=== PATIENT | male | born 1965 | race Caucasian/White ===

== ENCOUNTER 2016-04-09 20:11 | Emergency (ER) ==
[2016-04-09 20:15] VITALS: BP 139/88; TEMP 97.9; BMI 27.3
[2016-04-09] MEDS ORDERED: DECADRON 4 MG/ML SDV IM STA (20:31)
[2016-04-09] MEDS ORDERED: ASPIRIN CHEWABLE PO STA (20:31)
--- NOTE | 2016-04-09 20:35 | ED.PDOC ---
General ED Provider: Dr. REGINO LIRIANO Chief Complaint: Chest Wall Injury/Pain Stated Complaint: Been coughing congestion for couple days, getting lots of sputum, but today started hurting in the left side of the chest, dull tyle, hurts to breath, pain radiates to left arm, some shortness of breath. no fever or chills Time Seen by Physician: 20:32 Mode of Arrival: Walk-In Information Source: Patient Primary Care Provider: YUE PACHECO Nursing and Triage Documentation Reviewed and Agree: Yes Cardiovascular Complaint Exam - Chest Pain Complaint/Exam Onset: Gradual Symptoms Are: Still present Timing: Constant Initial Severity: Moderate Current Severity: Moderate Location: Reports: Midsternal, Upper sternal Pain Radiates: Reports: Left shoulder, Left arm Character: Reports: Tightness, Heaviness Aggravating: Reports: Exertion, Deep breaths Alleviating: Reports: None Associated Signs and Symptoms: Reports: Cough, Short of air. Denies: Diaphoresis, Nausea, Vomiting, Fever, Palpitations, Hemoptysis, Back pain, Abdominal pain, Dizziness, Calf pain, Calf swelling Related History: Reports: Similar episode Related Surgical History: Reports: None History of Healthcare-Acquired Pneumonia: Reports: No AMI/ACS Risk Factors: Reports: None TAD Risk Factors: Reports: Hypertension, Smoking Pulmonary Embolism Risk Factors: Reports: None Prior Care for this Complaint: No Recent Stress Test: No Recent Echo/LV Function: No JVD Present: No Subcutaneous Emphysema Present: No Diminshed Breath Sounds: Yes Reproducible Chest Wall Pain: Yes Bilateral Pulses Present: Yes Unequal Pulses Noted: No If Risk Factors for AMI/ACS Consider: EKG, Cardiac Enzymes, Serial Studies, Oxygen, Aspirin Differential Diagnoses: Unstable Angina, Chest Wall Pain Review of Systems - Review Of Systems Constitutional: Reports: Weakness Eyes: Reports: No symptoms Ears, Nose, Mouth, Throat: Reports: No symptoms Respiratory: Reports: Short of air Cardiac: Reports: Chest pain GI: Reports: No symptoms : Reports: No symptoms Musculoskeletal: Reports: No symptoms Skin: Reports: No symptoms Neurological: Reports: No symptoms Endocrine: Reports: No symptoms Hematologic/Lymphatic: Reports: No symptoms All Other Systems: Reviewed and Negative Past Medical History - Past Medical History Previously Healthy: Yes Endocrine: Reports: DM 2 Cardiovascular: Reports: None Respiratory: Reports: None Hematological: Reports: None Gastrointestinal: Reports: None Genitourinary: Reports: None Neuro/Psych: Reports: None Musculoskeletal: Reports: None Cancer: Reports: None - Surgical History General Surgical History: Reports: Tonsillectomy - Family History Family History: Reports: None - Social History Smoking Status: Never smoker Hx Substance Use: No Alcohol Screening: Occasionally - Immunizations Tetanus Shot up to Date: No Physical Exam - Physical Exam Appearance: Ill-appearing, Thin Pain Distress: Moderate Eyes: VINAY, EOMI, Conjunctiva clear ENT: Ears normal, Nose normal, Oropharynx normal Respiratory: Breath sounds diminished Cardiovascular: RRR, Pulses normal, No rub, No murmur GI/: Soft, Nontender, No masses, Bowel sounds normal, No Organomegaly Musculoskeletal: Normal strength, ROM intact, No edema, No calf tenderness Skin: Warm, Dry, Normal color Neurological: Sensation intact, Motor intact, Reflexes intact, Cranial nerves intact, Alert, Oriented Psychiatric: Affect appropriate, Mood appropriate Interpretation - Radiology Interpretation Radiology Interpretation By: Radiologist Radiology Results: Negative Exam Interpreted: CT Scan Re-Evaluation - Re-Evaluation Time of Re-Evaluation: 22:27 Status: Improved Critical Care Note - Critical Care Note Total Time (mins): 0 Course - Course Hematology/Chemistry: 04/09/16 20:39 04/09/16 20:39 Orders, Labs, Meds: Lab Review 04/09/16 20:39 WBC 8.36 RBC 5.36 Hgb 16.4 Hct 47.4 MCV 88.4 MCH 30.6 MCHC 34.6 RDW Coeff of [place] 13.3 Plt Count 289 Immature Gran % (Auto) 0.4 Neut % (Auto) 55.0 Lymph % (Auto) 33.1 [place] % (Auto) 9.2 Eos % (Auto) 1.8 Baso % (Auto) 0.5 Immature Gran # (Auto) 0.0 Neut # 4.6 Lymph # 2.8 [place] # 0.8 Eos # 0.2 Baso # 0.0 D-Dimer 0.22 Sodium 136 Potassium 4.4 Chloride 100 Carbon Dioxide 25 Anion Gap 15.4 BUN 9 Creatinine 0.99 Estimated GFR (MDRD) 80.00 BUN/Creatinine Ratio 9.09 Glucose 390 H Calcium 9.4 Total Bilirubin 0.58 AST 16 ALT 35 Alkaline Phosphatase 73 Total Creatine Kinase 119 CK-MB (CK-2) 2.9 CK-MB (CK-2) % 2.40920 Troponin I < 0.0100 B-Natriuretic Peptide < 10 Total Protein 7.1 Albumin 4.2 Globulin 2.9 Albumin/Globulin Ratio 1.45 Orders Category Date Time Status EKG-(ED ONLY) Stat CARDIO 04/09/16 20:31 Completed ACCUCHECK (ED) [ED ACCUCHECK ASSESSMENT] .ONCE EMERGENCY 04/09/16 22:11 Active B-TYPE NATRIURETIC PEPTIDE Stat LAB 04/09/16 20:39 Completed CBC W/ AUTO DIFF Stat LAB 04/09/16 20:39 Completed COMPREHENSIVE METABOLIC PANEL Stat LAB 04/09/16 20:39 Completed CREATINE KINASE Stat LAB 04/09/16 20:39 Completed D-DIMER Stat LAB 04/09/16 20:39 Completed TROPONIN I Stat LAB 04/09/16 20:39 Completed Aspirin [Aspirin Chewable] MEDS 04/09/16 20:31 Discontinued 81 mg PO ONCE STA Dexamethasone 4 mg/ml Inj [Decadron 4 mg/ml Sdv] MEDS 04/09/16 20:31 Discontinued 4 mg IM ONCE STA Insulin Regular, Human [Humulin R] MEDS 04/09/16 21:59 Discontinued 10 unit SU[address]UT ONCE STA CT CHEST W/O CONTRAST Stat RADS 04/09/16 20:34 Completed Medications Discontinued Medications Generic Name Dose Route Start Last Admin Trade Name Freq PRN Reason Stop Dose Admin Aspirin 81 mg 04/09/16 20:31 04/09/16 20:41 Aspirin Chewable PO 04/09/16 20:32 81 mg ONCE STA Administration Dexamethasone Sodium Phosphate 4 mg 04/09/16 20:31 04/09/16 20:41 Decadron 4 Mg/Ml Sdv IM 04/09/16 20:32 4 mg ONCE STA Administration Insulin Human Regular 10 unit 04/09/16 21:59 04/09/16 22:20 Humulin R SUBCUT 04/09/16 22:00 10 unit ONCE STA Administration Vital Signs: Temp Pulse Resp BP Pulse Ox 04/09/16 20:12 97.9 F 91 H 20 139/88 96 GIULIA Risk Score GIULIA Risk Score: Risk Score Odds of by 30D 0 0.1 (0.1-0.2) 1 0.3 (0.2-0.3) 2 0.4 (0.3-0.5) 3 0.7 (0.6-0.9) 4 1.2 (1.0-1.5) 5 2.2 (1.9-2.6) 6 3.0 (2.5-3.6) 7 4.8 (3.8-6.1) Departure - Departure Time of Disposition: 22:24 Disposition: HOME SELF-CARE Discharge Problem: Chest wall pain, Pleurisy, URTI (acute upper respiratory infection) Instructions: Pleurisy (ED) Condition: Stable Pt referred to PMD for follow-up: Yes Additional Instructions: Keep checking the blood sugars if more than 250 call MD steroids will increase sugars needs medication adjustment sugars are high, patient wants to go home as his also has diabetes and they did not bring her medications patient does take Insulin humalog at home tells that she will make sure they are better other hernandez she will take him to PMD in am Prescriptions: Cephalexin [Keflex] 500 mg PO Q12HR #20 capsule Codeine/Promethazine Syrup [Phenergan with Codeine 6.25/10 mg/5 ml] 5 ml PO Q8H #1 bottle Prednisone 5 mg PO BIDWM #14 tablet Allergies/Adverse Reactions: Allergies No Known Allergies Allergy (Unverified 04/09/16 20:15) Home Medications: Ambulatory Orders Hydrocodone/Acetaminophen [[place] 10-325 Tablet] 1 each PO Q6HR PRN #20 tablet Cephalexin [Keflex] 500 mg PO Q12HR #20 capsule 04/09/16 Codeine/Promethazine Syrup [Phenergan with Codeine 6.25/10 mg/5 ml] 5 ml PO Q8H #1 bottle 04/09/16 Prednisone 5 mg PO BIDWM #14 tablet 04/09/16 Disposition Discussed With: Patient, Family
[2016-04-09 20:45] LABS: BASOPHILS % (AUTO) 0.5 % (0.0-3.0); EOSINOPHILS # (AUTO) 0.2 K/ul (0.0-0.7); EOSINOPHILS % (AUTO) 1.8 % (0.0-7.0); HEMATOCRIT 47.4 % (42.0-52.0); HEMOGLOBIN 16.4 g/dl (14.0-18.0); IMMATURE GRANULOCYTE % (AUTO) 0.4 % (0.0-5.0); LYMPHOCYTES # (AUTO) 2.8 K/uL (0.60-3.4); LYMPHOCYTES % (AUTO) 33.1 (10.0-50.0); MEAN CORPUSCULAR HEMOGLOBIN 30.6 pg (27.0-31.0); MEAN CORPUSCULAR HGB CONC 34.6 (31.8-35.4); MEAN CORPUSCULAR VOLUME 88.4 fl (80.0-94.0); MONOCYTES # (AUTO) 0.8 K/uL (0.4-2.0); MONOCYTES % (AUTO) 9.2 (0-10); NEUTROPHILS # (AUTO) 4.6 K/ul (2.0-6.9); PLATELET COUNT 289 10^3/uL (140-440); RED BLOOD COUNT 5.36 10^6/ul (4.70-6.10); WHITE BLOOD COUNT 8.36 K/ul (4.2-10.2)
[2016-04-09 21:20] LABS: ALANINE AMINOTRANSFERASE 35 U/L (12-78); ALBUMIN 4.2 g/dL (3.4-5.0); ALBUMIN/GLOBULIN RATIO 1.45; ALKALINE PHOSPHATASE 73 U/L (50-136); ANION GAP 15.4; ASPARTATE AMINO TRANSFERASE 16 U/L (15-37); BILIRUBIN,TOTAL 0.58 mg/dL (0.00-1.20); BLOOD UREA NITROGEN 9 mg/dL (7-18); BUN/CREATININE RATIO 9.09; CALCIUM 9.4 mg/dL (8.2-10.2); CARBON DIOXIDE 25 mmol/L (21-32); CHLORIDE 100 mmol/L (98-107); CREATINE KINASE 119 U/L; CREATININE 0.99 mg/dL (0.60-1.10); GLUCOSE 390 mg/dL (70-100); POTASSIUM 4.4 mmol/L (3.5-5.1); SODIUM 136 mmol/L (136-145); TOTAL PROTEIN 7.1 g/dL (6.4-8.2)
[2016-04-09 21:21] LABS: CREATINE KINASE MB 2.9 ng/ml (0.0-3.6)
--- NOTE | 2016-04-09 21:36 | CT ---
Exam: CT of the chest without contrast History: Trauma and chest pain on the left Technique: [address] of the chest without intravascular contrast FINDINGS: Lung windows show no pulmonary parenchymal abnormalities. Heart, great vessels and peric ardium appear normal. No acute findings of the chest wall soft tissues or bony thorax. Upper abdom en shows no acute findings. Impression: No acute findings of the chest
[2016-04-09] MEDS ORDERED: HUMULIN R SUBCUT STA (21:59)
== END 2016-04-09 23:30 | disposition home or self-care (01) ==
LOC: ED 20:11
DX: R07.89 Other chest pain (principal); J06.9 Acute upper respiratory infection, unspecified; R09.1 Pleurisy; E11.65 Type 2 diabetes mellitus with hyperglycemia; I10 Essential (primary) hypertension
CPT/HCPCS: 36415; 80053; 82550; 82553; 82962; 83880; 84484; 85025; 85379; 93005; 93010; 96372; 99283

== ENCOUNTER 2017-11-24 19:35 | Emergency (ER) ==
[2017-11-24 19:47] VITALS: BP 131/86; TEMP 100; BMI 25.7
--- NOTE | 2017-11-24 21:18 | CT ---
EXAM: CTA chest with contrast using PE protocol. TECHNIQUE: Helical CTA of the chest was performed with contrast in axial plane with coronal and sagit kiarra reconstructions and separate work station 3-D renderings. COMPARISON: CT chest from 04/09/2016 HISTORY: Chest pain. FINDINGS: There are no filling defects in the pulmonary arteries to the level of the subsegmental branches. The re is no sign of ventricular strain. The lungs are clear with no large effusion or failure or lobar i nfiltrate. There is no pathologic supraclavicular, axillary, mediastinal or hilar adenopathy. There is no pericardial effusion or pneumothorax. The aorta demonstrates no significant atherosclerot ic calcifications with no dissection or aneurysm. The upper abdomen is benign with no acute abnormali ty. There are no acute osseous abnormalities. There is fatty infiltration of the liver IMPRESSION: 1. No evidence for pulmonary embolus. 2. Clear lungs. 3. Fatty liver
--- NOTE | 2017-11-24 21:22 | ED.PDOC ---
General ED Provider: Dr. ALANNA PEREZ-ER Chief Complaint: Cough Stated Complaint: hira been coughing for a week Time Seen by Physician: 21:20 Mode of Arrival: Walk-In Information Source: Patient Exam Limitations: No limitations Primary Care Provider: YUE PACHECO Nursing and Triage Documentation Reviewed and Agree: Yes Does patient meet sepsis criteria?: No System Inflammatory Response Syndrome: Not Applicable Sepsis Protocol: For patient's 13 years and over: Temp is 96.8 and below OR 101 and greater Pulse >90 BPM Resp >20/minute Acutely Altered Mental Status Are patient's symptoms suggestive of a new infection, such as: -Pneumonia -Skin, Soft Tissue -Endocarditis -UTI -Bone, Joint Infection -Implantable Device -Acute Abdominal Infection -Wound Infection -Meningitis -Blood Stream Catheter Infection -Unknown Respiratory Complaint Exam - Respiratory Complaint/Exam Onset/Duration: 1 week Symptoms Are: Still present Timing: Constant Initial Severity: Mild Current Severity: Mild Location: Chest Character: Reports: Non-productive cough Alleviating: Reports: None Associated Signs and Symptoms: Reports: Pleuritic chest pain, URI History of Healthcare-Acquired Pneumonia: No Pseudomonas Risk Factors: Reports: None Tuberculosis Risk Factors: Reports: None Status Asthmaticus Risk Factors: Reports: None Home Oxygen Use: No Recent Stress Test: No Recent Echo/LV Function: No Current Antibiotic Use: No Current Asthma Medication Use: No Respiratory Distress: None Inadequate Respiratory Effort: No Dysphagia Present: No Stridor Present: No JVD Present: No Accessory Muscle Use: No Retractions: Not Present Diminished Breath Sounds: No Sinus Tenderness: None Grunting Respirations: No Kussmaul Respirations: No Differential Diagnoses: Bronchitis Non-Traumatic Chest Pain Syncope: EKG Performed Review of Systems - Review Of Systems Constitutional: Reports: No symptoms Eyes: Reports: No symptoms Ears, Nose, Mouth, Throat: Reports: No symptoms Respiratory: Reports: Cough. Denies: Orthopnea, Short of air, Stridor, Wheezing Cardiac: Reports: No symptoms GI: Reports: No symptoms : Reports: No symptoms Musculoskeletal: Reports: No symptoms Skin: Reports: No symptoms Neurological: Reports: No symptoms Endocrine: Reports: No symptoms Hematologic/Lymphatic: Reports: No symptoms All Other Systems: Reviewed and Negative Past Medical History - Past Medical History Previously Healthy: Yes Endocrine: Reports: DM 2 Cardiovascular: Reports: None Respiratory: Reports: None Hematological: Reports: None Gastrointestinal: Reports: None Genitourinary: Reports: None Neuro/Psych: Reports: None Musculoskeletal: Reports: None Cancer: Reports: None - Surgical History General Surgical History: Reports: Tonsillectomy - Family History Family History: Reports: None - Social History Smoking Status: Former smoker Hx Substance Use: No Alcohol Screening: None - Immunizations Tetanus Shot up to Date: Yes (had 10/2017) Physical Exam - Physical Exam Appearance: Well-appearing, No pain distress, Well-nourished Eyes: VINAY, EOMI, Conjunctiva clear ENT: Ears normal, Nose normal, Oropharynx normal Neck: Supple Respiratory: Airway patent Cardiovascular: RRR, Pulses normal, No rub, No murmur GI/: Soft Musculoskeletal: Normal strength, ROM intact, No edema, No calf tenderness Skin: Warm, Dry, Normal color Neurological: Sensation intact, Motor intact, Reflexes intact, Cranial nerves intact, Alert, Oriented Psychiatric: Affect appropriate, Mood appropriate Interpretation - Radiology Interpretation Radiology Interpretation By: Radiologist Radiology Results: Negative Exam Interpreted: CT Scan - EKG Interpretation Time of EKG #1: 21:21 Rate: Normal Rhythm: Sinus Ectopy: None [place]: NL ST Segment: Normal Interpretation: nsr Critical Care Note - Critical Care Note Total Time (mins): 0 Course - Course Hematology/Chemistry: 11/24/17 20:00 11/24/17 20:00 Orders, Labs, Meds: Lab Review 11/24/17 11/24/17 11/24/17 20:00 20:00 20:00 WBC 6.34 RBC 4.75 Hgb 14.4 Hct 41.1 L MCV 86.5 MCH 30.3 MCHC 35.0 RDW Coeff of [place] 13.9 Plt Count 261 Neutrophils % (Manual) 35.0 L Lymphocytes % (Manual) 49.0 Monocytes % (Manual) 14.0 H Eosinophils % (Manual) 2.0 Reactive Lymphocytes 20.0 H Anisocytosis Not present RBC Morph Comment N Sodium 140 Potassium 3.8 Chloride 103 Carbon Dioxide 28 Anion Gap 12.8 BUN 10 Creatinine 0.85 Estimated GFR (MDRD) 95.00 BUN/Creatinine Ratio 11.76 Glucose 159 H Calcium 9.2 Total Bilirubin 1.4 H AST 22 ALT 26 Alkaline Phosphatase 67 Total Creatine Kinase Troponin I B-Natriuretic Peptide 11 Total Protein 7.0 Albumin 3.6 Globulin 3.4 Albumin/Globulin Ratio 1.06 11/24/17 20:00 WBC RBC Hgb Hct MCV MCH MCHC RDW Coeff of [place] Plt Count Neutrophils % (Manual) Lymphocytes % (Manual) Monocytes % (Manual) Eosinophils % (Manual) Reactive Lymphocytes Anisocytosis RBC Morph Comment Sodium Potassium Chloride Carbon Dioxide Anion Gap BUN Creatinine Estimated GFR (MDRD) BUN/Creatinine Ratio Glucose Calcium Total Bilirubin AST ALT Alkaline Phosphatase Total Creatine Kinase 109 Troponin I < 0.0100 B-Natriuretic Peptide Total Protein Albumin Globulin Albumin/Globulin Ratio Orders Category Date Time Status EKG-(ED ONLY) Stat CARDIO 11/24/17 19:51 Ordered NPO REMINDER: IMAGING ONCE CARE 11/24/17 19:52 Completed Staffing Operations Manager [ED OUTSIDE PLANT CABLE ENGINEER APPLIED] .ONCE EMERGENCY 11/24/17 19:51 Active IV [ED IV/MEDIPORT/POWERPORT] .ONCE EMERGENCY 11/24/17 19:52 Active BLOOD CULTURE (ED ONLY) Stat LAB 11/24/17 20:00 Received BNP [B-TYPE NATRIURETIC PEPTIDE] Stat LAB 11/24/17 20:00 Completed CBC W/ AUTO DIFF Stat LAB 11/24/17 20:00 Completed COMPREHENSIVE METABOLIC PANEL Stat LAB 11/24/17 20:00 Completed CREATINE KINASE Stat LAB 11/24/17 20:00 Completed MANUAL DIFFERENTIAL Stat LAB 11/24/17 20:00 Completed TROPONIN I Stat LAB 11/24/17 20:00 Completed 0.9 % Sodium Chloride [Saline Flush] MEDS 11/24/17 19:52 Ordered 1 syr IVF PRN PRN CT CHEST PE PROTOCOL Stat RADS 11/24/17 19:52 Completed Medications Generic Name Dose Route Start Last Admin Trade Name Freq PRN Reason Stop Dose Admin Sodium Chloride 1 syr 11/24/17 19:52 Saline Flush IVF PRN PRN To flush IV Vital Signs: Temp Pulse Resp BP Pulse Ox 11/24/17 19:36 100 F H 92 H 20 131/86 96 Departure - Departure Time of Disposition: 21:22 Disposition: HOME SELF-CARE Discharge Problem: Bronchitis Instructions: Acute Bronchitis (ED) Condition: Good Pt referred to PMD for follow-up: Yes IPMP verified?: No Additional Instructions: hold metformin for 48hrs---augmentin 875mg bid x 7 days--flovent inhaler 44mcg 2 puffs bid ---phenergan wtih codeine 1 tsp q 6hrs prn cough 125cc nhr--f/u wtih pcp Allergies/Adverse Reactions: Allergies No Known Allergies Allergy (Verified 11/24/17 19:45) Home Medications: Ambulatory Orders Hydrocodone/Acetaminophen [[place] 10-325 Tablet] 1 each PO Q6HR PRN #20 tablet Insulin Glargine,Hum.rec.anlog [Lantus] 20 unit SUBCUT BEDTIME 11/24/17 Metformin HCl [Metformin HCl ER] 500 mg PO DAILY 11/24/17 Disposition Discussed With: Patient
== END 2017-11-24 21:30 | disposition home or self-care (01) ==
LOC: ED 19:35
DX: J20.9 Acute bronchitis, unspecified (principal); E11.9 Type 2 diabetes mellitus without complications
CPT/HCPCS: 36415; 80053; 82550; 83880; 84484; 85007; 85025; 87040; 93005; 93010; 99284